=== PATIENT | female | born 1960 | race Caucasian/White ===

== ENCOUNTER 2016-08-16 21:00 | Emergency (ER) | payer OTHER ==
[~2016-08-16] VITALS: Ht 162.6 cm; Wt 116.3 kg
[2016-08-16] MEDS ORDERED: AMLODIPINE-BEN1 EAC2 PO (21:42)
[2016-08-16] MEDS ORDERED: OSELTAMIVIR PHO75 MG PO (21:42)
[2016-08-16] MEDS ORDERED: CHERATUSSIN AC473 ML PO (21:43)
[2016-08-16] MEDS ORDERED: METFORMIN HCL500 MG PO (21:44)
[2016-08-16] MEDS ORDERED: BRINTELLIX20 MG PO (21:44)
[2016-08-16] MEDS ORDERED: ESOMEPRAZOLE MA40 MG PO (21:44)
[2016-08-16] MEDS ORDERED: ALLEGRA ALLERG180 MG PO (21:45)
[2016-08-16] MEDS ORDERED: AMLODIPINE-BEN1 EACH PO (21:45)
[2016-08-17 00:27] VITALS: BP 132/60
== END 2016-08-17 00:27 | disposition home or self-care (01) ==
LOC: EME 21:00
DX: H53.8 Other visual disturbances (principal); H52.10 Myopia, unspecified eye; R73.03 Prediabetes; I10 Essential (primary) hypertension
CPT/HCPCS: 70450; 99281; 99283

== ENCOUNTER → 2017-11-26 | Outpatient (CLI) | payer OTHER ==
[~2017-11-26] MED LIST: ALLEGRA ALLERG180 MG PO; AMLODIPINE-BEN1 EAC2 PO; AMLODIPINE-BEN1 EACH PO; BRINTELLIX20 MG PO; CHERATUSSIN AC473 ML PO; ESOMEPRAZOLE MA40 MG PO; METFORMIN HCL500 MG PO; OSELTAMIVIR PHO75 MG PO; VENTOLIN HFA18 GM IH
== END | disposition home or self-care (01) ==
LOC: CDC 09:53
DX: Z01.810 Encounter for preprocedural cardiovascular examination (principal)
CPT/HCPCS: 93000

== ENCOUNTER 2017-12-05 07:45 | Day surgery (SDC) | payer OTHER ==
[~2017-12-05] VITALS: Ht 162.6 cm; Wt 117.9 kg
[~2017-12-05 07:45] MED LIST changes: +ALORA TP; +NYSTATIN100000 UN1 PO
[2017-12-05 08:21] VITALS: BP 135/65
[2017-12-05] MEDS ORDERED: CLIMARA1 EACH TD (08:55)
[2017-12-05 12:20] VITALS: BP 116/73
[2017-12-05 13:15] VITALS: BP 107/59
== END 2017-12-05 13:15 | disposition home or self-care (01) ==
LOC: SDC 07:45
PROVIDERS: Obstetrics & Gynecology Gynecology
PROC: 0JBB0ZZ Excision of Perineum Subcutaneous Tissue and Fascia, Open Approach (ICD-10-PCS; principal; 2017-12-05)
DX: D28.0 Benign neoplasm of vulva (principal); E66.01 Morbid (severe) obesity due to excess calories; Z68.42 Body mass index [BMI] 45.0-49.9, adult; E11.9 Type 2 diabetes mellitus without complications; I10 Essential (primary) hypertension; G47.30 Sleep apnea, unspecified; Z90.711 Acquired absence of uterus with remaining cervical stump; Z80.0 Family history of malignant neoplasm of digestive organs; Z82.49 Family history of ischemic heart disease and other diseases of the circulatory system
CPT/HCPCS: 82948; 87641; 88305; 88341 TC; 88342 TC; J0690; J1100; J2250; J2405; J3010